=== PATIENT | female | born 1980 | race Caucasian/White ===

== ENCOUNTER 2017-06-15 09:42 | Outpatient (CLI) | payer OTHER | END 2017-06-15 09:49 | disposition home or self-care (01) | LOC: LAB 09:42 | DX: Z34.00 Encounter for supervision of normal first pregnancy, unspecified trimester (principal) ==

== ENCOUNTER 2017-07-10 07:27 | Day surgery (SDC) | payer OTHER | END 2017-07-10 14:18 | disposition home or self-care (01) | LOC: CIR.AMB 07:27 | DX: O02.1 Missed abortion (principal) ==

== ENCOUNTER 2022-06-26 16:54 | Outpatient (CLI) | payer OTHER | END 2022-06-26 16:56 | disposition home or self-care (01) | LOC: LAB 16:54 | PROVIDERS: ATTEND Obstetrics & Gynecology | DX: N91.2 Amenorrhea, unspecified (principal); R10.9 Unspecified abdominal pain ==